=== PATIENT | female | born 1940 | race Caucasian/White ===

== ENCOUNTER 2016-11-04 14:16 | Emergency (ER) | payer MEDICARE ==
[~2016-11-04] VITALS: Ht 167.6 cm; Wt 70.0 kg
[~2016-11-04 14:16] MED LIST: ASPI81TA82 PO; BENI20TA25 PO; CIPR500T2 PO; DICL-86 PO; TOPR50TA PO; ZOFR4TAB3 SL
[2016-11-04 14:36] VITALS: BP 106/59; PULSE 74; RESP 16; TEMP 98.2; O2SAT 95
[2016-11-04] MEDS ORDERED: AUGM500T7 PO (15:02)
[2016-11-04] MEDS ORDERED: METO50TA11 PO (15:02)
[2016-11-04] MEDS ORDERED: PLAV75TA29 PO (15:02)
[2016-11-04] MEDS ORDERED: BENI20TA5 PO (15:02)
[2016-11-04] MEDS ORDERED: BENZ100 PO (15:02)
--- NOTE | 2016-11-04 15:45 | RADHPO ---
EXAM DATE/TIME: 11/04/2016 15:01 [place] COMPARISON: No previous studies available for comparison. INDICATIONS : Weakness, cough, and congestion for five days. MEDICAL HISTORY : None. SURGICAL HISTORY : CABG. ENCOUNTER: Initial ACUITY: 4 - 6 days PAIN SCORE: 0/10 LOCATION: Bilateral chest FINDINGS: PA and lateral views of the chest demonstrate postoperative median sternotomy and CABG and aortic rizwan ve replacement. Minimal basilar scarring. No effusion. No pneumothorax. Tortuous aorta. No focal cons olidation. CONCLUSION: 1. Postoperative CABG and aortic valve replacement no acute findings. Minimal basilar scarring. Tortu ous aorta. Walker Sen MD on November 04, 2016 at 15:42 Board Certified Radiologist. This report was verified electronically.
--- NOTE | 2016-11-04 16:08 | PD ---
HPI Chief Complaint: Cold / Flu Symptoms Time Seen by Provider: 14:49 Travel History International Travel<30 days: No Contact w/Intl Traveler<30days: No Traveled to known affect area: No History of Present Illness HPI Patient is a 76-year-old female comes in complaining of cough for 5 days. She went to see her primary care doctor 2 days ago and was prescribed Augmentin and Tessalon Perles. She comes in today because the cough is not improved. She denies any shortness of breath. She denies any chest pain. She denies any fever or chills. PFSH Past Medical History Arthritis: Yes Asthma: No Autoimmune Disease: No Blood Disorders: No Heart Rhythm Problems: No Cancer: No Cardiac Catheterization: Yes Cardiovascular Problems: Yes (CABG, STENTS, VALVE REPL.) High Cholesterol: No Chest Pain: Yes Congestive Heart Failure: No COPD: No Coronary Artery Disease: Yes Endocrine: No GERD: No Genitourinary: No Hepatitis: No Hiatal Hernia: No Hypertension: Yes Immune Disorder: No Implanted Vascular Access Dvce: Yes Musculoskeletal: Yes Neurologic: No Psychiatric: No Reproductive: No Respiratory: No Myocardial Infarction: Yes Sleep Apnea: No Ulcer: No ?: Not Past Surgical History Abdominal Surgery: Yes (HYSTERECTOMY-APPY, OVARIAN CYST) AICD: No Body Medical Devices: CORONARY STENTS, AORTIC VALVE Cardiac Surgery: Yes (AORTIC VALVE REPLACEMENT) Coronary Artery Bypass Graft: Yes Ear Surgery: Yes (LEFT MASTOIDECTOMY) Endocrine Surgery: No Eye Surgery: No Genitourinary Surgery: No Gynecologic Surgery: Yes (TAHBSO) Hysterectomy: Yes Joint Replacement: Yes (RIGHT HIP) Oral Surgery: No Pacemaker: No Thoracic Surgery: No Other Surgery: Yes Social History Alcohol Use: No Tobacco Use: No Substance Use: No Allergies-Medications (Allergen,Severity, Reaction): Coded Allergies: Codeine (Verified Allergy, Severe, Itching, 11/04/16) Sulfa (Verified Adverse Reaction, Severe, THRUSH, 11/04/16) Reported Meds & Prescriptions Reported Meds & Active Scripts Active Guaifenesin-Codeine Liq 100-10 Mg/5 Ml Soln 10 Ml PO Q6H PRN Reported Metoprolol Succinate ER 24 HR (Metoprolol Succinate) 50 Mg Tab 50 Mg PO DAILY Plavix (Clopidogrel Bisulfate) 75 Mg Tab 75 Mg PO DAILY Benicar (Olmesartan) 20 Mg Tab 20 Mg PO DAILY Tessalon Perles (Benzonatate) 100 Mg Cap 200 Mg PO TID PRN Augmentin (Amoxicillin-Clavulanate) 500-125 mg Tab Mg PO BID Review of Systems Except as stated in HPI: all other systems reviewed are Neg General / Constitutional: No: Fever, Chills HENT: No: Headaches Cardiovascular: No: Chest Pain or Discomfort Respiratory: Positive: Cough, No: Shortness of Breath Gastrointestinal: No: Nausea, Vomiting Musculoskeletal: No: Myalgias Skin: No Rash, No Change in Pigmentation Neurologic: No: Weakness, Dizziness Physical Exam Narrative GENERAL: Awake and alert, and no acute distress. SKIN: Focused skin assessment warm/dry. HEAD: Atraumatic. Normocephalic. EYES: Pupils equal and round. No scleral icterus. ENT: Mucous membranes pink and moist. NECK: Trachea midline. No JVD. CARDIOVASCULAR: Regular rate and rhythm. No murmur appreciated. RESPIRATORY: No accessory muscle use. Clear to auscultation. Breath sounds equal bilaterally. MUSCULOSKELETAL: No obvious deformities. No clubbing. No cyanosis. No edema. NEUROLOGICAL: Awake and alert. No obvious cranial nerve deficits. Motor grossly within normal limits. Normal speech. PSYCHIATRIC: Appropriate mood and affect; insight and judgment normal. Data Data Last Documented VS Vital Signs Date Time Temp Pulse Resp B/P Pulse Ox O2 Delivery O2 Flow Rate FiO2 11/04/16 16:36 78 18 128/78 99 11/04/16 14:36 98.2 Orders Chest, Pa & Lat (11/04/16 ) [facility] Medical Decision Making Medical Screen Exam Complete: Yes Emergency Medical Condition: Yes Medical Record Reviewed: Yes Differential Diagnosis URI versus pneumonia versus bronchitis Narrative Course Patient is a 76-year-old female comes in complaining of cough for several days. She is currently taking antibiotics prescribed by her primary care doctor, but is concerned that she is not getting better. Exam shows no acute abnormalities. Patient has not had any fever, has no other complaints other than the cough. Chest x-ray performed shows no acute abnormalities, no evidence of pneumonia. Patient advised that it is possible the cough is viral and coughs take several weeks to go away. Advised to continue her medications. Given prescription for cough syrup with codeine. Patient states she is able to take the codeine even though it makes her itch. She would like to try to take this to sleep at night with her cough. Diagnosis Primary Impression: Cough Patient Instructions: Acute Cough (ED), General Instructions Additional Instructions: Follow up with your doctor. Take your medications as prescribed. Return to the ED as needed for any worsening symptoms. Scripts Guaifenesin-Codeine Liq 100-10 Mg/5 Ml Soln10 Ml PO Q6H PRN (COUGH) #1 BOTTLE Ref 0 Prov:Indira Cobb MD 11/04/16 Disposition: 01 DISCHARGE HOME Condition: Stable Indira Cobb MD November 04, 2016 16:08
[2016-11-04] MEDS ORDERED: GUAI100S5 PO (16:13)
[2016-11-04 16:36] VITALS: BP 128/78
== END 2016-11-04 16:29 | disposition home or self-care (01) ==
LOC: PHED 14:16
DX: R05 Cough (principal); I10 Essential (primary) hypertension
CPT/HCPCS: 71020; 99283